=== PATIENT | female | born 1985 | race African-American/Black ===

== ENCOUNTER 2018-06-17 11:00 | Emergency (ER) | payer SELFPAY ==
[2018-06-17] MEDS ORDERED: Lidocaine 1% PF 5 ML VIAL ONE (11:19)
== END 2018-06-17 11:51 | disposition home or self-care (01) ==
LOC: ERS 11:00
DX: L02.415 Cutaneous abscess of right lower limb (principal); I10 Essential (primary) hypertension; F17.210 Nicotine dependence, cigarettes, uncomplicated
CPT/HCPCS: 10061; J2001

== ENCOUNTER 2021-08-31 07:42 | Emergency (ER) | payer SELFPAY | END 2021-08-31 08:25 | disposition home or self-care (01) | LOC: ERS 07:42 | DX: L25.9 Unspecified contact dermatitis, unspecified cause (principal); F17.210 Nicotine dependence, cigarettes, uncomplicated | CPT/HCPCS: 99282 ==

== ENCOUNTER 2021-09-07 17:57 | Emergency (ER) | payer SELFPAY ==
[2021-09-07] MEDS ORDERED: Dexameth. Sod Phosp. 10 MG/ML (CHEMO USE ONLY) ONE (18:54)
[2021-09-07] MEDS ORDERED: diphenhydrAMINE 25 MG CAP ONE (18:54)
[2021-09-07] MEDS ORDERED: Dexamethasone 4 MG TAB ONE (18:54)
== END 2021-09-07 19:08 | disposition home or self-care (01) ==
LOC: ERS 17:57
DX: L25.9 Unspecified contact dermatitis, unspecified cause (principal); I10 Essential (primary) hypertension; F17.210 Nicotine dependence, cigarettes, uncomplicated
CPT/HCPCS: 99282; J1100; J8540